=== PATIENT | male | born 1995 | race Caucasian/White ===

== ENCOUNTER 2019-06-27 18:31 | Emergency (ER) | payer MEDICAID ==
[~2019-06-27] VITALS: Ht 182.9 cm; Wt 70.0 kg
[2019-06-27] MEDS ORDERED: acetaminophen 325mg tablet PO ONE (21:10)
[2019-06-27 21:18] VITALS: BP 118/75
[2019-06-27] MEDS ORDERED: IBUP-1984 PO (21:21)
== END 2019-06-27 21:38 | disposition home or self-care (01) ==
LOC: ER 18:32
DX: S93.691A Other sprain of right foot, initial encounter (principal); Z79.899 Other long term (current) drug therapy; W22.8XXA Striking against or struck by other objects, initial encounter; Y93.89 Activity, other specified; Y92.89 Other specified places as the place of occurrence of the external cause; Y99.8 Other external cause status
CPT/HCPCS: 73630; 99283

== ENCOUNTER 2020-01-01 20:16 | Emergency (ER) | payer MEDICAID, OTHER ==
[~2020-01-01] VITALS: Ht 182.9 cm; Wt 75.0 kg
[2020-01-01 20:17] VITALS: BP 132/78
== END 2020-01-01 20:47 | disposition home or self-care (01) ==
LOC: ER 20:17
DX: Z00.00 Encounter for general adult medical examination without abnormal findings (principal)
CPT/HCPCS: 99283